=== PATIENT | female | born 1995 | race Hispanic/Latino ===

== ENCOUNTER 2022-01-02 07:51 | Day surgery (SDC) | payer BC, OTHER ==
[2021-12-31 16:08] LABS: SARS-CoV-2 Antigen Rapid Res Negative (Negative)
[2022-01-02] MEDS ORDERED: Ringers Lactate 1,000 ML IV ONE (08:18)
[2022-01-02] MEDS ORDERED: MIDAZOLAM HCL 2 MG/2 ML INJ ONE (08:26)
[2022-01-02] MEDS ORDERED: FENTANYL CITR 100 MCG/2 ML ONE (08:26)
[2022-01-02] MEDS ORDERED: LIDOCAINE 1% MPF 5 ML VIAL ONE (08:26)
[2022-01-02] MEDS ORDERED: propofoL 200 MG/20 ML VIAL IV ONE (08:26)
[2022-01-02] MEDS ORDERED: ONDANSETRON 4 MG/2 ML VIAL ONE ×2 (08:27→11:08)
[2022-01-02] MEDS ORDERED: dexAMETHasone 10 MG/ML VIAL ONE (08:27)
[2022-01-02] MEDS ORDERED: ROCURONIUM 50 MG/5 ML VIAL IV ONE (08:27)
[2022-01-02] MEDS ORDERED: KETOROLAC 30 MG/ML INJ ONE (08:33)
[2022-01-02] MEDS ORDERED: BUPIVACA 0.5%/EPI 0.0005%/PF 30 ML VIAL ONE (08:44)
[2022-01-02] MEDS ORDERED: GLYCOPYRROLATE 0.2 MG/ML SYR ONE (09:20)
[2022-01-02] MEDS ORDERED: NEOSTIGMINE 1 MG/ML -10 ML VIAL ONE (09:20)
[2022-01-02 09:21] LABS: Urine Specific Gravity/Preg >1.030 (1.005-1.030)
[2022-01-02] MEDS ORDERED: ALBUTEROL INHALER 60 PUFF/8 GM IH ONE (09:23)
[2022-01-02] MEDS: HYDROMORPHONE HCL 1 MG/ML INJ ONE ×2 (09:52→09:59)
[2022-01-02 09:58] VITALS: O2SAT 100
[2022-01-02 10:32] VITALS: BP 118/65; TEMP 97.7
[2022-01-02] MEDS ORDERED: ACETAMINOPHEN 160 MG/5 ML UCUP ONE (10:46)
--- NOTE | 2022-01-02 20:16 | OP ---
Date of Procedure: 01/02/2022 Surgeon: GENO ANN Preoperative Diagnoses: 1.Left tonsil neoplasm - uncertain behavior. 2.Chronic tonsillitis. Postoperative Diagnoses: 1.Left tonsil neoplasm - uncertain behavior. 2.Chronic tonsillitis. Procedure: Bilateral tonsillectomy. Anesthesia: General endotracheal anesthesia was administered. I also infiltrated approximately 4 mL of 0.25% Marcaine with 1:200,000 epinephrine into bilateral tonsillar fossa and soft palate. Estimated Blood Loss: Between 2 and 4 mL. Specimens: Bilateral tonsils submitted separately to pathology for evaluation. Findings: Bilateral cryptic tonsils with evidence of right tonsillar exudate and small fibromatous p olypoid lesion located at the mid pole of the left tonsil. Both tonsils were significantly inflamed. Complications: None. Disposition: Stable. The patient tolerated the procedure well. Indication For Procedure: The patient is a pleasant 26-year-old female, who presented to my office a fter she had seen the dentist and Ms. Stacy regarding a polypoid lesion involving the left tonsil. O n examination, I noticed that the patient had significant inflammation of bilateral tonsils with evid ence of prior infections and a fibromatous or papillomatous lesion involving the mid pole of the left tonsil. These were indications to bring the patient to the operative suite for the above-mentioned procedure. She understood. All questions were answered. Risks versus benefits and complications we re explained in detail and a consent form was signed, was placed on the chart. Description Of Procedure: The patient was transferred from the preoperative holding area to the oper ative suite by Department of Anesthesia, placed on the operating table supine, sedated and intubated in normal fashion. Table was rotated 90 degrees and a shoulder roll was placed. Head and eyes were covered with sterile blue towels and moist Ray-Natalie was placed over the upper lip for protection. A M cIvor retractor was introduced in the right oral commissure and directed along the endotracheal tube and suspended from the Saavedra stand. Tonsils were removed by grasping the superior poles with straight Allis clamps. I then utilized need lepoint electrocautery on the twentieth setting to start the dissection through the mucosa. Once tamiko n the peritonsillar fascial planes, there was a scant fascial plane noted, but I was able to find it and dissect within the planes and then inferiorly. I amputated the inferior poles with suction Bovie . The patient had slight oozing of bilateral tonsillar fossa due to a scant fascial plane. Thus, I used a suction Bovie on the twentieth setting to perform cauterization. I then retracted the soft pa late anteriorly and visualized the adenoid cavity with the laryngeal mirror. There was a little kiran oid tissue. Thus, this was not needed to be addressed today. The tonsils were submitted separately to pathology. I then infiltrated approximately 4 mL of 0.25% Marcaine with 1:200,000 epinephrine int o bilateral tonsillar fossa and soft palate and then I inserted a flexible orogastric tube into the e sophagus and stomach and all fluid contents were removed. The patient was then de-suspended from the [place] stand and McIvor retractor was removed. The patient' s jaw was checked and found to be in proper alignment. The shoulder roll and head turban were remove d. The patient was transferred back to Department of Anesthesia in stable condition where she was duvall bsequently awakened, extubated, and transferred to postoperative care unit. She will be discharged h ome on analgesic medication and will follow up in 1-2 weeks or sooner if needed. She tolerated the proce dure well. JULES/MALATHI Voice ID: [id number] Report ID: [id number]
== END 2022-01-02 11:10 | disposition home or self-care (01) ==
LOC: OR 07:51
PROVIDERS: ATTEND Otolaryngology Facial Plastic Surgery
PROC: 0CTPXZZ Resection of Tonsils, External Approach (ICD-10-PCS; principal; 2022-01-02 10:15)
DX: D37.05 Neoplasm of uncertain behavior of pharynx (principal); J35.01 Chronic tonsillitis; R59.0 Localized enlarged lymph nodes; Z20.822 Contact with and (suspected) exposure to COVID-19
CPT/HCPCS: 36415; 81025; 87811; 88304; J1100; J1170; J2250; J2405; J2704; J2710; J3010; J7120

== ENCOUNTER 2022-08-23 12:55 | Emergency (ER) | payer BC ==
--- OUTSIDE RECORDS SUMMARY | 2022-08-23 12:58 | XMS REPORT | Continuity of Care Document ---
:1995 Author Organization [facility] t Address [address] [place] [address] [place] [id number] Care Team Providers Name Role Phone Denise Stacy Attending Clinician Unavailable Syd Colmenares MD Attending Clinician Payers Payer Name Policy Type Policy Number Effective Date Expiration Date S ource Problems Condition Condition Condition Status Onset Resolution Last Treating Co mments Source Name Details Category Date Date Treatment Clinician Date Cholelithi Cholelithi Disease Active 2012-06 U jam asis asis 2-01 ity of 00:00: [address] Branch Rubella Rubella Disease Active 2012-06 Univers immune immune 1-14 ity of 00:00: [address] Branch Depo-Prove Depo-Prove Disease Active 2012-06 U jam ra ra 1-12 [place] daphney status 00 Mt dical Branch Anemia of Anemia of Disease Active 2012-06 Uni vers mother in mother in 0-14 [place] , , [place] dical condition condition Bran ch Immune to Immune to Disease Active Uni vers varicella varicella 5-14 ity of 00:00: [place] 00 Medical Branch Asthma Asthma Disease Active Overview: Univer s 3-18 ICD10 ity of 00:00: Diagnosis [place] [address] Term [facility] [employer] Professor Branch Utility Allergies, Adverse Reactions, Alerts Allergy Allergy Status Severity Reaction(s) Onset Inactive Treating Comm ents Source Name Type Date Date Clinician NO KNOWN Drug Active Univers ALLERGIE Class ity of S [facility] Social History Social Habit Start Date Stop Date Quantity Comments Source Exposure to Not sure University of SARS-CoV-2 [place] Medical (event) Branch Tobacco use and 2018-11-06 2018-11-06 Never used Universit y of exposure 00:00:00 00:00:00 [facility] Alcohol intake 2018-11-06 2018-11-06 Current University of 00:00:00 00:00:00 non-drinker of [facility] alcohol Branch (finding) Sex Ass[birth year] At [birth year] Universit y of 00:00:00 00:00:00 [facility] Smoking Status Start Date Stop Date Source Never smoker [facility] [place] Medications Ordered Filled Start Stop Current Ordering Indication Dosage Frequency Signature Comments Components Source Medication Medication Date Date Medication? Clinician (SIG) Name Name metoprolol 2020- No 5mg 5 mg, Slow Univers (LOPRESSOR) 5-25 05-25 IV Push, ity of injection 5 04:00: 03:06 [place]CE, 1 [place] mg 00 :00 dose, Mon Medical 10/29/20 at Branch 2300, RICHARD adenosine 2020- No 6mg 6 mg, IV Uni vers (ADENOCARD 5-25 05-25 Push, ity of IV) 03:15: 02:12 ONCE, 1 [place] injection 6 00 :00 dose, Mon Med ical mg 10/29/20 at Branch 2215, STAT metoprolol Yes [id number] 12.5mg Take 0.5 Univers tartrate 25 5-24 tablets by it y of mg tablet 00:00: mouth [place] 00 every 24 Medical (twenty-fo Branch ur) hours. 2013- Yes [id number] 1{tbl} Take 1 Tab Univers multivitami 8-07 by mouth ity of n ( 00:[place] [address] [place] [address] tablet Branch Immunizations Ordered Filled Immunization Date Status Comments Sour e Immunization Name Name MMR 2013-03-06 Completed University of 00:00:00 [facility] TDAP 2012-12-16 Completed University of 00:00:00 [facility] Rubella 2012-07-26 Completed University of 00:00:00 [facility] Varicella-zoster ig 2012-07-26 Completed [facility] 00:00:00 [facility] Influenza Virus 2012-04-17 Completed Universit y of Vaccine 00:00:00 [facility] Td 2008-06-08 Completed University of 00:00:00 [facility] Vital Signs Vital Name Observation Time Observation Value Comments Source Systolic blood 2020-10-30 04:32:00 106 mm[Hg] [facility] Diastolic blood 2020-10-30 04:32:00 73 mm[Hg] [facility] Heart rate 2020-10-30 04:32:00 83 /min [facility] Respiratory rate 2020-10-30 04:32:00 20 /min [facility] Oxygen saturation in 2020-10-30 04:32:00 96 /min [facility] Arterial blood by [facility] Pulse oximetry [place] Body temperature 2020-10-30 01:56:00 36.83 Claudia [facility] Body weight 2020-10-30 01:56:00 53.524 kg [facility] Procedures Procedure Date / Time Performing Clinician Source Performed CRITICAL CARE 2020-10-30 04:03:27 Darrian [facility] POCT TEST 2020-10-30 04:02:00 Syd Colmenares [facility] D-DIMER 2020-10-30 03:28:00 Darrian [facility] MAGNESIUM 2020-10-30 02:06:00 [facility] TROPONIN I 2020-10-30 02:06:00 [facility] FREE T4 2020-10-30 02:06:00 [facility] THYROID STIMULATING 2020-10-30 02:06:00 Syd Colmenares [facility] HORMONE [facility] HEPATIC FUNCTION PANEL 2020-10-30 02:06:00 Syd Colmenares [facility] ([id number]) (ALB,T.PRO,BILI [facility] T,BU/BC,ALT,AST,ALK PHOS) BASIC METABOLIC PANEL 2020-10-30 02:06:00 Syd Colmenares [facility] (NA, K, CL, CO2, Medical [place] GLUCOSE, BUN, CREATININE, CA) CBC WITH DIFF 2020-10-30 02:06:00 Syd Colmenares [facility] N-TERMINAL PRO-BNP 2020-10-30 02:06:00 Syd Colmenares [facility] NOTICE OF PRIVACY 2020-10-30 01:44:50 Doctor Unassigned, No Univ [facility] PRACTICES Name Medical Branch CONSENT/REFUSAL FOR 2020-10-30 01:44:37 Doctor Unassigned, No [facility] DI[facility]NOSIS AND TREATMENT Name Medical Branch Encounters Start End Encounter Admission Attending Care Care Encounter Source Date/Time Date/Time Type Type Clinicians Facility Department ID 2022-08-14 Outpatient [place], [facility] [id number] Common 15:46:02 Denise [id number] [facility] 2022-08-12 Outpatient [place], [facility]LML[facility] [id number] Common 13:18:01 Denise [id number] [facility] 2022-07-17 [facility] [id number] Common 16:11:01 Denise [id number] [facility] 2020-10-29 2020-10-30 Emergency Colmenares, [facility] [id number] Univers 20:55:00 00:04:00 Syd [place] [id number] i ty [facility] [id number] [facility] [id number] [facility] 084 Branch 2020-10-29 2020-10-29 Emergency X [facility] ERT [id number] Univers 20:43:00 20:43:00 ity [facility] Results Test Description Test Time Test Comments Results Result Comments Source D-DIMER 2020-10-30 04:24:19 Test Item Value Reference Range Interpretation Comme nts D-DIMER (test code = <0.27 See_Comment [Autom ated message] The [id number]) system which ge nerated this result tra nsmitted reference range : <0.41 ?g/mL (FEU). Th e reference range was not used to interpr et this result as normal/abnormal . LISA (test code = LISA) This test may be used in conjunction with a clinical pretest probability (PTP) assessment model to exclude venous thromboembolism (VTE) in patients suspected of deep venous thrombosis (DVT) and pulmonary embolism (PE) A D-Dimer value less than 0.50 ?g/ml (FEU) has a negative predicative value of 96 to 100% (95% CI)and 97 to 100% (95% CI) as an aid in the diagnosis of deep vein thrombosis (DVT) and pulmonary embolism when there is low or moderate pretest probability of PE or DVT. D-Dimer values are expressed in initial fibrinogen equivalent units (FEU)" The assay results should be used with other information, including the clinical context, in forming a diagnosis. Lab Interpretation Normal (test code = 72170-7) [facility] [id number] 04:03:27Syd Colmenares MD ? ? 10/29/2020 11:03 PMCritical CarePerformed by: Syd Colmenares MDAuthorized by: Syd Colmenares MD Critical care provider statement: ?Critical care time (minutes): ?30 ?Criticalcare was necessary to treat or prevent imminent or life-threatening deterioration of the following conditions: ?Cardiac failure ?Critical care was time spent personally by me on the following activities: ?Ordering and performing treatments and interventions, ordering and review of laboratory studies, re-evaluation of patient's condition, evaluation of patient's response to treatment, blood draw for specimens and examination of patientUnB[facility]valePOCT [id number] 04:02:00 Test Item Value Reference Range Interpretation Comments POCT PREG (test code = 1605) negative On board controls acceptable with present C Line (test code = 3574) POCT PREG LOT # (test code = 3575) [id number] POCT PREG TEST DATE (test 2022-05-07 code = 3576) Lab Interpretation (test code = Normal 72482-8) [facility] CenterTroponin [id number] 03:48:03 Test Item Value Reference Range Interpretation Comments TROPONIN I (test 0.008 ng/mL See_Comment [Automated code = 3467984319) message] The system which generated this result transmitted reference range : <=0.034. The reference range was not used to interpret this result as normal/abnormal . LISA (test code = Equal or Less than LISA) 0.034 ng/ml---Normal ?Note: Cardiac troponin begins to rise 3-4 hours after the onset of ischemia. Repeat in 4-6 hours if the sample was drawn within 3-4 hours of the onset of the symptom and found normal. Between 0.035 and 0.120 ng/mL--- Borderline. Questionable myocardial injury or necrosis ? ?Note: Serial measurement may be necessary to confirm or exclude the diagnosis of myocardial injury or necrosis; Clinical correlation (symptoms, EKGs, imaging studies, and others) required; Repeat in 4-6 hours if clinically indicated. ? Equal or Higher than 0.121 ng/mL---Abnormal. Myocardial Injury or Necrosis Likely ? Biotin has been reported to cause a negative bias, interpret results relative to patient's use of biotin. ? Lab Interpretation Normal (test code = 12011-5) [facility] acute hospital [id number] 03:33:22 Test Item Value Reference Range Interpretation Comments FREE T4 (test code = See_Comment [Autom ated message] [id number]) The system [employer] generated this result transmitted ref erence range: 0.78 - 2 .20 ng/dL:. The ref erence range was not u sed to interpret this result as normal/abnor mal. Lab Interpretation (test Normal code = 54654-8) [facility] Metabolic Panel (NA, K, CL, CO2, GLUCOSE, BUN, CREATININE, CA)2020-10-30 03:28:18 Test Item Value Reference Range Interpretation Comments NA (test code = 138 mmol/L 135-145 0325563933) K (test code = 3.6 mmol/L 3.5-5.0 8505375941) CL (test code = 103 mmol/L 98-108 0409955561) CO2 TOTAL (test code = 24 mmol/L 23-31 3153268768) AGAP (test code = 2-16 2537422369) BUN (test code = 12 mg/dL 7-23 5146558007) GLUCOSE (test code = 146 mg/dL 70-110 H 5912146762) CREATININE (test code = 0.52 mg/dL 0.50-1.04 1156657018) CALCIUM (test code = 9.6 mg/dL 8.6-10.6 1819954112) eGFR (test code = mL/min/1.73m2 7469579989) LISA (test code = LISA) Association of Glomerular Filtration Rate (GFR) and Staging of Kidney Disease* + --+ --+ ------+| GFR (mL/min/1.73 m2) ?| With Kidney Damage ?| ?Without Kidney Damage+ --------+ --------+ +| ?>90 ?| ?Stage one ?| ? Normal ?+ ---+ ---+ -------+| ?60-89 ?| ?Stage two ?| ? Decreased GFR ? + --+ --+ ------+| ?30-59 ?| ?Stage three ?| ? Stage three ? + --+ --+ ------+| ?15-29 ?| ?Stage four ? | ? Stage four ?+ ---+ ---+ -------+| ?<15 (or dialysis) ? ?| ?Stage five ? | ? Stage five ?+ ---+ ---+ -------+ *Each stage assumes the associated GFR level has been in effect for at least three months. ?Stages 1 to 5, with or without kidney disease, indicate chronic kidney disease. Notes: Determination of stages one and two (with eGFR >59mL/min/1.73 m2) requires estimation of kidney damage for at least three months as defined by structural or functional abnormalities of the kidney, manifested by either:Pathological abnormalities or Markers of kidney damage (including abnormalities in the composition of the blood or urine or abnormalities in imaging tests). Lab Interpretation Abnormal (test code = 56471-6) [facility] (ALB, T.PRO, BILI T, BU/BC, ALT, AST, ALK PHOS)2020-10-30 03:28:18 Test Item Value Reference Range Interpretation Comments TOTAL BILI (test code = 0524558113) 0.6 mg/dL 0.1-1.1 BILI UNCON (test code = 0895854482) 0.5 mg/dL 0.1-1.1 BILI CONJ (test code = 9334947646) 0.0 mg/dL 0.0-0.3 T PROTEIN (test code = 5237910187) 7.5 g/dL 6.3-8.2 ALBUMIN (test code = 2930051928) 4.5 g/dL 3.5-5.0 ALK PHOS (test code = 3856587866) 54 U/L 34-122 ALTv (test code = 1742-6) 34 U/L 5-35 AST(SGOT) (test code = 4377321650) 31 U/L 13-40 Lab Interpretation (test code = Normal 76277-9) [facility] CenterN-TERMINAL [id number] 03:28:18 Test Item Value Reference Range Interpretation Comments NT-proBNP (test code 17 pg/mL See_Comment [Autom ated = 9405613222) message] The system which generated this result transmitted reference range : <=125. The reference range was not used to interpret this result as normal/abnormal . LISA (test code = LISA) Biotin has been reported to cause a negative bias, interpret results relative to patient's use of biotin. Lab Interpretation Normal (test code = 86452-4) [facility] CenterMAG[facility]UM2021-05-25 03:28:18 Test Item Value Reference Range Interpretation Comments MAGNESIUM (test code = 6257310666) 2.1 mg/dL 1.7-2.4 Lab Interpretation (test code = Normal 55351-7) [facility] CenterTHYROID STIMULATING [id number] 03:28:18 Test Item Value Reference Range Interpretation Comments TSH (test code = See_Comment Biotin has been 4809510011) reported to cau se a negative bias, interpret resul ts relative to pat ient's use of biotin. [Automated mess age] The system whic h generated this result transmitted ref erence range: 0.45 - 4 .70 mIU/L. The refe rence range was not u sed to interpret this result as normal/abnor mal. Lab Interpretation (test Normal code = 44886-7) [facility] CenterCB with [id number] 02:17:47 Test Item Value Reference Range Interpretation Comments WBC (test code = See_Comment [Automated 3790-2) message] The sy stem which generated this result transmitted reference range : 4.30 - 11.10 10*3/?L. The reference range was not used to interpret this result as normal/abnormal . RBC (test code = See_Comment [Automated 259-8) message] The sy stem which generated this result transmitted reference range : 3.93 - 5.25 10*6/?L. The reference range was not used to interpret this result as normal/abnormal . HGB (test code = 14.7 g/dL 11.6-15.0 718-7) HCT (test code = 45.0 % 35.7-45.2 4544-3) MCV (test code = 86.5 fL 80.6-95.5 787-2) MCH (test code = 28.3 pg 25.9-32.8 785-6) MCHC (test code = 32.7 g/dL 31.6-35.1 786-4) RDW-SD (test code = 38.6 fL 39.0-49.9 L 60674-1) RDW-CV (test code = 12.2 % 12.0-15.5 788-0) PLT (test code = See_Comment [Automated 777-3) message] The sy stem which generated this result transmitted reference range : 166 - 358 10*3/ ?L. The reference r ana was not used to interpret this result as normal/abnormal . MPV (test code = 10.8 fL 9.5-12.9 66124-8) NRBC/100 WBC (test See_Comment [Automat ed code = 5009259334) message] The system which generated this result transmitted reference range : 0.0 - 10.0 /100 WBCs. The refer ence range was not u sed to interpret th is result as normal/abnormal . NRBC x10^3 (test code <0.01 See_Comment [Auto mated = 9299180574) message] The s ystem which generated this result transmitted reference range : 10*3/?L. The reference range was not used to interpret this result as normal/abnormal . GRAN MAT (NEUT) % 58.3 % (test code = 770-8) IMM GRAN % (test code 0.10 % = 8505977824) LYMPH % (test code = 32.7 % 736-9) MONO % (test code = 5.9 % 5905-5) EOS % (test code = 2.5 % 713-8) BASO % (test code = 0.5 % 706-2) GRAN MAT x10^3(ANC) 5.41 10*3/uL 1.88-7.09 (test code = 3287759467) IMM GRAN x10^3 (test <0.03 0.00-0.06 code = 0570153463) LYMPH x10^3 (test code 3.03 10*3/uL 1.32-3.29 = 731-0) MONO x10^3 (test code 0.55 10*3/uL 0.33-0.92 = 742-7) EOS x10^3 (test code = 0.23 10*3/uL 0.03-0.39 711-2) BASO x10^3 (test code 0.05 10*3/uL 0.01-0.07 = 704-7) Lab Interpretation Abnormal (test code = 51910-8) [facility]
[2022-08-23 13:34] LABS: Urine Blood Negative (Negative); Urine Glucose Negative (Negative); Urine Protein Negative (Negative); Urine Specific Gravity 1.025 (1.005-1.030)
[2022-08-23 13:56] LABS: Absolute Lymphocytes (CBC) 1.6 K/uL (0.7-4.9); Hematocrit 44.7 % (36.0-45.0); Lymphocytes % 19.5 % (15.3-44.8); MPV 8.6 fL (7.6-11.3); RBC Red Blood Cell Count 5.26 M/uL (3.86-4.86)
[2022-08-23 14:02] LABS: Barbiturates NEGATIVE (NEGATIVE); Benzodiazepines NEGATIVE (NEGATIVE); Cocaine NEGATIVE (NEGATIVE); METHAMPHETAM NEGATIVE (NEGATIVE); Methadone NEGATIVE (NEGATIVE); Opiates NEGATIVE (NEGATIVE); Phencyclidine NEGATIVE (NEGATIVE); THC Cannibis NEGATIVE (NEGATIVE)
[2022-08-23 14:04] LABS: SARS-CoV-2 Antigen Rapid Res Negative (Negative)
[2022-08-23 14:09] LABS: Protime INR 0.94
[2022-08-23 14:33] LABS: ALT/SGPT 30 U/L (13-56); AST/SGOT 16 U/L (15-37); Albumin 4.1 g/dL (3.4-5.0); Alkaline Phosphatase 68 U/L (45-117); BUN Blood Urea Nitrogen 9 mg/dL (7-18); Bicarbonate 29 mEq/L (21-32); Bilirubin Direct < 0.1 mg/dL (0-0.2); Bilirubin Total 0.4 mg/dL (0.2-1.0); Glomerular Filtration Rate 124 ml/min (=/>90); Glucose Level 102 mg/dL (74-106); Potassium 3.8 mEq/L (3.5-5.1); Protein, Total 7.9 g/dL (6.4-8.2); Sodium Level 137 mEq/L (136-145)
[2022-08-23 15:33] LABS: Urine Specific Gravity/Preg 1.025 (1.005-1.030)
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
[2022-08-23 17:18] VITALS: BP 138/89; TEMP 98.3; O2SAT 99
--- NOTE | 2022-08-25 17:39 | EKG ---
Test Date: 2022-08-23 Test Time: 13:33:59 Trial Lawyer: YG MEASUREMENT RESULTS: Intervals: Rate: 91 SC: 132 QRSD: 82 QT: 350 QTc: 430 [place]: P: 79 SC: 132 QRS: 87 T: 54 INTERPRETIVE STATEMENTS: Normal sinus rhythm Normal ECG No previous ECG available for comparison Electronically Signed On 08-25-22 17:36:15 CDT by Darwin Connor
== END 2022-08-23 17:13 | disposition home or self-care (01) ==
LOC: ER 12:55
DX: F32.89 Other specified depressive episodes (principal); Z20.822 Contact with and (suspected) exposure to COVID-19
CPT/HCPCS: 93005; 85025; 80048; 36415; 81025; 85610; 80076; 85730; 81003; 80307; 99283; 87811; G0480 ×3